=== PATIENT | male | born 1980 | race Caucasian/White ===

== ENCOUNTER 2017-06-27 23:15 | Emergency (ER) | payer OTHER ==
[~2017-06-27] VITALS: Ht 182.9 cm; Wt 95.2 kg
[~2017-06-27 23:15] MED LIST: MULT-506 PO; OMEG10007 PO
[2017-06-27 23:30] VITALS: TEMP 37.4; Ht 182.9 cm; Wt 95.2 kg
[2017-06-27] MEDS ORDERED: IBUP-103 PO (23:58)
[2017-06-27] MEDS ORDERED: DOXY100C76 PO (23:58)
[2017-06-28] LABS: BASO % 0.3 %; BASO ABS # 0.03 K/uL (0-0.2); EOS % 0.6 %; EOS ABS # 0.07 K/uL (0-0.5); HEMATOCRIT 46.9 % (42-52); HEMOGLOBIN 17.2 g/dL (14.0-18.0); IG# 0.02 K/uL (0.00-0.02); LYMPH % 8.2 %; LYMPH ABS # 0.97 K/uL (1.2-3.4); MEAN CELL VOLUME 85.1 fL (80-100); MEAN CORPUSCULAR HEMOGLOBIN 31.2 pg (25-34); MEAN CORPUSCULAR HGB CONC 36.7 g/dl (32-36); MEAN PLATELET VOLUME 9.4 fL (7.4-10.4); MONO % 5.6 %; MONO ABS # 0.67 K/uL (0.11-0.59); NEUT % 85.1 %; NEUT ABS # 10.13 K/uL (1.4-6.5); PLATELET COUNT 260 K/uL (130-400); RED CELL DISTRIBUTION WIDTH CV 12.5 % (11.5-14.5); RED CELL DISTRIBUTION WIDTH SD 39.1 fL (36.4-46.3); WHITE BLOOD COUNT 11.89 K/uL (4.8-10.8)
[2017-06-28 00:16] LABS: CALCIUM 8.6 mg/dl (8.5-10.1); CREATININE 1.26 mg/dl (0.60-1.40); POTASSIUM 3.6 mmol/L (3.5-5.1)
[2017-06-28 00:36] LABS: INFLUENZA B ANTIGEN Neg for Influ B (NEG)
--- NOTE | 2017-06-28 00:51 | EMERGENCY ROOM VISIT NOTE ---
History First contact with patient: 23:33 Chief Complaint: RESPIRATORY PROBLEMS Stated Complaint: PNEUMONIA Nursing Triage Summary: Patient diagnosed with L lower lobe pneumonia 2 wks ago. Patient started on new abx today but was concerned it would not work. History of Present Illness The patient is a 36 year old male who presents to the Emergency Room with complaints of respiratory symptoms. The patient reports that he was seen 2 weeks ago at an outpatient [facility] office due to a fever and diagnosed with left lower lobe pneumonia. He was started on a Z-Francisco and finished this one week ago. He reports that he felt better and his fever improved. He was seen the next day in the office and was told that he was improving. However, the patient reports that he again developed a fever today. He does report some body aches and slight chest tightness and mild cough. Rates his overall discomfort a 1/10. Temperature has been up to 100F. He has been taking Advil for symptoms. He called the office today and they called him and doxycycline. He took one dose of this. He denies any significant respiratory distress, chest pain, headache, neck pain, nausea or vomiting. Review of Systems A complete 10 point review of systems was reviewed with the patient with pertinent positives and negatives as per history of present illness. All else were negative. Social History Smoking Status: Never Smoker Alcohol Use: occasionally Marital Status: single Occupation Status: unemployed Current/Historical Medications Scheduled Doxycycline Monohydrate (Monodox), 100 MG PO BID Scheduled PRN Ibuprofen Tab (Advil), 200-600 MG PO Q4H PRN for Pain or Fever Physical Exam Vital Signs Date Time Temp Pulse Resp B/P (MAP) Pulse Ox O2 Delivery O2 Flow Rate FiO2 06/28/17 00:59 89 16 126/78 98 06/28/17 00:18 91 20 150/85 99 Room Air 06/27/17 23:30 37.4 120 20 127/80 96 Room Air Physical Exam VITALS: Vitals are noted on the nurse's note and reviewed by myself. Vital signs stable. GENERAL: This is a 36-year-old male, in no acute distress, nondiaphoretic, well- developed well-nourished. SKIN: The skin was without rashes. EARS: External auditory canals clear, tympanic membranes pearly james without erythema or effusion bilaterally. EYES: Pupils equal round and reactive to light and accommodation. MOUTH: Mucous membranes moist. Tonsils are not enlarged. Pharynx without erythema or exudate. NECK: Supple without nuchal rigidity. No lymphadenopathy. HEART: Regular rate and rhythm without murmurs gallops or rubs. LUNGS: Clear to auscultation bilaterally without wheezes, rales or rhonchi. No retractions or accessory muscle use. NEURO: Patient was alert and oriented to person place and time. Medical Decision & Procedures ER Provider Diagnostic Interpretation: CHEST 2 VIEW: Possible left lower lobe pneumonia. Laboratory Results 06/27/17 23:45 Red Blood Count 5.51, Mean Corpuscular Volume 85.1, Mean Corpuscular Hemoglobin 31.2, Mean Corpuscular Hemoglobin Concent 36.7, Mean Platelet Volume 9.4, Neutrophils (%) (Auto) 85.1, Lymphocytes (%) (Auto) 8.2, Monocytes (%) (Auto) 5.6, Eosinophils (%) (Auto) 0.6, Basophils (%) (Auto) 0.3, Neutrophils # (Auto) 10.13, Lymphocytes # (Auto) 0.97, Monocytes # (Auto) 0.67, Eosinophils # (Auto) 0.07, Basophils # (Auto) 0.03 06/27/17 23:45 Test 06/27/17 23:45 White Blood Count 11.89 K/uL (4.8-10.8) Red Blood Count 5.51 M/uL (4.7-6.1) Hemoglobin 17.2 g/dL (14.0-18.0) Hematocrit 46.9 % (42-52) Mean Corpuscular Volume 85.1 fL (80-100) Mean Corpuscular Hemoglobin 31.2 pg (25-34) Mean Corpuscular Hemoglobin Concent 36.7 g/dl (32-36) Platelet Count 260 K/uL (130-400) Mean Platelet Volume 9.4 fL (7.4-10.4) Neutrophils (%) (Auto) 85.1 % Lymphocytes (%) (Auto) 8.2 % Monocytes (%) (Auto) 5.6 % Eosinophils (%) (Auto) 0.6 % Basophils (%) (Auto) 0.3 % Neutrophils # (Auto) 10.13 K/uL (1.4-6.5) Lymphocytes # (Auto) 0.97 K/uL (1.2-3.4) Monocytes # (Auto) 0.67 K/uL (0.11-0.59) Eosinophils # (Auto) 0.07 K/uL (0-0.5) Basophils # (Auto) 0.03 K/uL (0-0.2) RDW Standard Deviation 39.1 fL (36.4-46.3) RDW Coefficient of Variation 12.5 % (11.5-14.5) Immature Granulocyte % (Auto) 0.2 % Immature Granulocyte # (Auto) 0.02 K/uL (0.00-0.02) Anion Gap 7.0 mmol/L (3-11) Est Creatinine Clear Calc Drug Dose 97.0 ml/min Estimated GFR () 84.5 Estimated GFR (Non- 72.9 BUN/Creatinine Ratio 12.0 (10-20) Calcium Level 8.6 mg/dl (8.5-10.1) Influenza Type A Antigen Neg for Influ A (NEG) Influenza Type B Antigen Neg for Influ B (NEG) Medical Decision Differential diagnosis includes pneumonia, influenza, viral URI, sepsis, among others. The patient is a 36-year-old male who presents today complaining of fever. Patient recently was treated for pneumonia with Zithromax. Chest x-ray was performed and does show possible left middle lobe infiltrate. Patient's previous x-ray was done through the [facility] system and is not able to be accessed for comparison. Patient has a minimal leukocytosis. Very low-grade fever on presentation to the ER. He is not hypoxic or toxic appearing. I do feel that doxycycline is an appropriate antibiotic choice and encouraged the patient to finish this course of antibiotics. It is possible that his fever today is unrelated to the resolving pneumonia and could be due to a viral process. Patient was encouraged to continue Tylenol and ibuprofen for fever and follow-up with his primary care provider for a recheck. He will return for any worsening of his current condition or new/concerning symptoms. Based on the patient's presentation and work up, I feel the patient is stable for outpatient treatment. The patient was educated to return to the emergency department for any worsening of their current condition or new/concerning symptoms. He will follow up with his PCP. Medication Reconcilliation Current Medication List: was personally reviewed by me Blood Pressure Screening Patient's blood pressure: Elevated blood pressure Blood pressure disposition: Elevated BP felt to be situational Impression Primary Impression: Pneumonia Departure Information Dispostion Home / Self-Care Condition GOOD Referrals No Doctor, Assigned (PCP) Patient Instructions My [facility] Additional Instructions Continue the doxycycline as prescribed. Continue to alternate Tylenol and ibuprofen as needed for pain/fever control. Rest and drink plenty of fluids. Continue the [id number] Mucinex. Follow-up with your primary care provider within 2-3 days for a recheck. Return to the emergency department with shortness of breath, fevers not controlled with Tylenol or ibuprofen, feeling dizzy or weak, or any other new/ concerning symptoms. Problem Qualifiers Primary Impression: Pneumonia Pneumonia type: due to unspecified organism Laterality: left Lung location : lower lobe of lung Qualified Codes: J18.1 - Lobar pneumonia, unspecified organism
[2017-06-28 00:59] VITALS: BP 126/78; PULSE 89; O2SAT 98
--- NOTE | 2017-06-28 06:33 | DIAGNOSTIC IMAGING REPORT ---
CHEST 2 VIEWS ROUTINE HISTORY: 36 years-old Male cough, fever, dx LLL pnx 2 wks ago acute cough and fever with recent diagnosis of left lower lobe pneumonia COMPARISON: Chest radiographs 05/19/2011 TECHNIQUE: PA and lateral views of the chest FINDINGS: Cardiomediastinal and hilar silhouettes are within normal limits. No pneumothorax, pleural effusion or overt pulmonary edema. Ill-defined airspace opacities are noted within the left lower lobe seen best on the frontal view. Right lung is clear. The bones appear grossly intact. IMPRESSION: Ill-defined airspace opacities of the left lower lobe suggest pneumonia. The above report was generated using voice recognition software. It may contain grammatical, syntax or spelling errors. Electronically signed by: Riki Jansen M.D. 06/28/2017 6:32 AM Dictated Date/Time: 06/28/2017 6:29 AM
== END 2017-06-28 00:59 | disposition home or self-care (01) ==
LOC: C.EDB 23:16 → C.EDA 06-28 00:59
DX: J18.9 Pneumonia, unspecified organism (principal); D72.829 Elevated white blood cell count, unspecified; R03.0 Elevated blood-pressure reading, without diagnosis of hypertension

== ENCOUNTER 2017-09-29 13:21 | Emergency (ER) | payer OTHER ==
[~2017-09-29] VITALS: Ht 182.9 cm; Wt 108.0 kg
[~2017-09-29 13:21] MED LIST changes: +DOXY100C76 PO; +IBUP-103 PO; -MULT-506 PO; -OMEG10007 PO
[2017-09-29 13:37] VITALS: TEMP 36.9; Ht 182.9 cm; Wt 108.0 kg
[2017-09-29] MEDS ORDERED: CEPH500C PO (13:58)
--- NOTE | 2017-09-29 13:58 | EMERGENCY ROOM VISIT NOTE ---
History First contact with patient: 13:47 Chief Complaint: EAR PAIN Stated Complaint: RIGHT EAR PAIN History of Present Illness The patient is a 36 year old male who presents to the Emergency Room via private vehicle with complaints of "right ear pain". The patient states that he noticed yesterday a small bump behind his right ear near the earlobe. He states that it has grown in size and is now painful. He denies any fevers or chills. He rates his overall pain as a 1/10. Review of Systems A complete 6-point Review of Systems was discussed with the patient, with pertinent positives and negatives listed in the History of Present Illness. All remaining Review of Systems questions can be considered negative unless otherwise specified. Past Medical/Surgical History No pertinent. Family History Seizure. Social History Smoking Status: Never Smoker Alcohol Use: occasionally Marital Status: single Occupation Status: unemployed Current/Historical Medications Scheduled Cephalexin Monohydrate (Keflex), 500 MG PO TID Doxycycline Monohydrate (Monodox), 100 MG PO BID Scheduled PRN Ibuprofen Tab (Advil), 200-600 MG PO Q4H PRN for Pain or Fever Physical Exam Vital Signs Date Time Temp Pulse Resp B/P (MAP) Pulse Ox O2 Delivery O2 Flow Rate FiO2 09/29/17 14:13 82 18 127/81 95 09/29/17 13:37 36.9 85 16 134/75 99 Room Air Physical Exam VITAL SIGNS - Vital signs and nursing notes were reviewed. Stable. Afebrile. GENERAL - 36-year-old male appearing his stated age who is in no acute distress. Communicates well with provider and answers questions appropriately. SKIN - Without rashes. There is a small amount of erythema on the posterior aspect of the inferior right ear on the earlobe. No evidence of abscess. HEAD - NC/AT. EYES - PERRL with EOMI bilaterally. Sclera anicteric. EARS - No deformities of external structures noted on gross examination bilaterally. No pain elicited with palpation of the tragus bilaterally. External auditory canals without discharge or otorrhea. Tympanic membranes pearly james without retraction or bulging. No fluid or purulent material visualized behind the TM. Handle of malleus, umbo, cone of light, pars tensa/ flaccid all easily visualized. Minimal tenderness to palpation overlying the patient's right posterior earlobe. There is a palpable round subcentimeter, likely 2 mm in diameter object within the skin. This is suspected to be a sebaceous cyst. NOSE - Midline and without cyanosis. No epistaxis or purulent drainage noted. MOUTH/OROPHARYNX - Without perioral cyanosis. NECK - Neck with FROM. Supple to palpation. No nuchal rigidity. Medical Decision & Procedures Medical Decision Patient was seen and evaluated as above in room D6. Review was performed of nursing notes and vital signs. After obtaining a thorough history and physical examination it was evident he was likely experiencing a small sebaceous cyst developing in the right dependent portion of the right earlobe. He is nontoxic on exam. No fevers or chills. I suspect that from him pressing on this it has likely irritated this. There is a small amount of erythema on the posterior earlobe. I favor this to again likely be irritation however a small skin infection cannot be ruled out. I will recommend beginning Keflex, and warm compresses. He is to follow with the family doctor or return with worsening. The patient was educated upon management, had questions answered prior to discharge, and was discharged home in good condition. In the evaluation and treatment of this patient the following differential diagnoses were entertained: Otitis media, otitis externa, cellulitis, abscess, sebaceous cyst, mastoiditis, among others. Impression Primary Impression: Cyst on ear Departure Information Dispostion Home / Self-Care Condition GOOD Prescriptions Cephalexin Monohydrate (Keflex) 500 Mg Cap 500 MG PO TID for 7 Days, #21 CAP Prov: Shaun Zaldivar PA-C 09/29/17 Referrals No Doctor, Assigned (PCP) Patient Instructions My [facility] Additional Instructions You were seen in the emergency department for a cyst behind her right ear. I suspect this is likely a sebaceous cyst. In the event that it could be starting an infection I recommend Keflex. 1 tablet every 8 hours for 7 days. Please take this with food. Please call your family doctor to schedule follow-up. I recommend warm compresses. Please return with any new/concerning symptoms.
[2017-09-29 14:13] VITALS: BP 127/81; PULSE 82; O2SAT 95
== END 2017-09-29 14:14 | disposition home or self-care (01) ==
LOC: C.EDB 13:22 → C.EDD 14:14
DX: Q18.1 Preauricular sinus and cyst (principal)